=== PATIENT | female | born 1965 | race Caucasian/White ===

== ENCOUNTER 2016-10-23 21:36 | Emergency (ER) | payer OTHER ==
[2016-10-23 21:39] VITALS: BP 110/77; PULSE 98; TEMP 37; O2SAT 95; Ht 152.4 cm
[2016-10-23] MEDS ORDERED: HYDR-5688 PO (21:56)
--- NOTE | 2016-10-23 21:57 | EMERGENCY ROOM VISIT NOTE ---
History First contact with patient: 21:42 Chief Complaint: OTHER COMPLAINT Stated Complaint: MEDICATION REQUEST History of Present Illness The patient is a 50 year old female who presents to the Emergency Room stating that she has diverticulitis. The patient reports that she was seen at her primary care provider's office today for left lower quadrant abdominal pain. She was given prescriptions for clindamycin and ciprofloxacin and told not to take them until she had a CT scan of her abdomen. The patient had the CT scan done as an outpatient tonight and states that it did show acute diverticulitis. She reports that when she went to fill the prescriptions, all the pharmacies were closed. The patient rates her abdominal discomfort a 5/10. She is slightly nauseous. She does have Zofran to take at home but states she does not have any pain medication. She denies any fevers/chills or vomiting. Review of Systems A complete 10-point Review of Systems was discussed with the patient, with pertinent positives and negatives listed in the History of Present Illness. All remaining Review of Systems questions can be considered negative unless otherwise specified. Past Medical/Surgical History Medical Problems: (1) Diverticulitis Colon (W/O Ment Of Hemorrhage) Surgical Problems: (1) No significant past surgical history Family History Cancer Heart disease Hypertension Social History Smoking Status: Current Every Day Smoker Alcohol Use: none Marital Status: Housing Status: lives with significant other Occupation Status: employed Current/Historical Medications Scheduled Aspirin (Aspirin Ec), 81 MG PO DAILY Ciprofloxacin Hcl (Cipro), 500 MG PO Q12 Clindamycin Hcl (Cleocin), 300 MG PO QID Fluticasone Propionate (Flovent Hfa), 2 PUFFS INH BID Multivitamins/Minerals (Mvi With Minerals), 1 TAB PO DAILY Scheduled PRN Hydrocodone/Acetaminophen 5MG/325MG ([place] 5MG/325MG), 1-2 TABLET PO Q4H PRN for Pain Ondansetron Hcl (Zofran), 4 MG PO Q8 PRN for Nausea [Proair], 2 PUFF INH Q4 PRN for Wheezing Allergies Coded Allergies: BEE STING (Unverified Allergy, Unknown, SWELLING, 07/09/16) Prednisone (Unverified Allergy, Unknown, IRRITABLE, 07/09/16) Physical Exam Vital Signs Date Time Temp Pulse Resp B/P Pulse Ox O2 Delivery O2 Flow Rate FiO2 10/23/16 21:39 37.0 98 20 110/77 95 Room Air Physical Exam VITALS: Vitals are noted on the nurse's note and reviewed by myself. Vital signs stable. GENERAL: This is a 50-year-old female, in no acute distress, nondiaphoretic, well-developed well-nourished. HEART: Regular rate and rhythm without murmurs gallops or rubs. LUNGS: Clear to auscultation bilaterally without wheezes, rales or rhonchi. No retractions or accessory muscle use. ABDOMEN: Positive bowel sounds x 4. Moderate tenderness over the left lower quadrant. No guarding or rebound tenderness. NEURO: Patient was alert and oriented to person place and time. Medical Decision & Procedures Medications Administered Medications (Trade) Dose Ordered Sig/Shahida Route Start Time Stop Time Status Last Admin Dose Admin Ciprofloxacin (Cipro 500MG Home Pack) 1 homepack UD ONCE PO 10/23/16 22:00 10/23/16 22:01 DC 10/23/16 22:07 1 HOMEPACK Clindamycin HCl (Cleocin 150MG Home Pack) 1 homepack UD ONCE PO 10/23/16 22:00 10/23/16 22:01 DC 10/23/16 22:07 1 HOMEPACK Acetaminophen/ Hydrocodone Bitart ([place] 5/325mg Home Pack) 1 homepack UD ONCE PO 10/23/16 22:00 10/23/16 22:01 DC 10/23/16 22:07 1 HOMEPACK Medical Decision The patient was evaluated as above. She already had an outpatient CT scan which diagnosed diverticulitis. The patient is here because she is not able to yet fill her prescriptions for her antibiotics. She was given home packs of both clindamycin and ciprofloxacin, which were prescribed to her by her primary care provider. Additionally, the patient was given a home pack and short prescription for [place] to be used as needed for pain. She will return for any new/concerning symptoms or worsening of her abdominal pain. Otherwise, she will follow-up with her primary care provider as scheduled. She verbalized understanding of my assessment and treatment plan and was discharged home in good condition. Impression Primary Impression: Diverticulitis Departure Information Dispostion Home / Self-Care Condition GOOD Prescriptions Hydrocodone/Acetaminophen 5MG/325MG ([place] 5MG/325MG) Tab 1-2 TABLET PO Q4H Y for Pain, #10 TAB For Initial Treatment Prov: Cara Moraes .JEFFREY 10/23/16 Referrals Barron Stevens M.D. (PCP) Patient Instructions A Signature Page, My [facility] Additional Instructions Take the antibiotics as prescribed by your primary care provider. You have been prescribed [place] to be used for pain control. Take 1-2 tablets every 4-6 hours as needed for pain. This is a narcotic medication. You cannot drive or consume alcohol while on this medicine. This medicine should only be used for pain that cannot be controlled with [id number] pain medicines. Follow-up with your primary care provider as scheduled. Return to the emergency department as needed for any worsening symptoms.
[2016-10-23] MEDS ORDERED: CLINDAMYCIN 150MG HOME PACK PO ONE (22:00)
[2016-10-23] MEDS ORDERED: CIPROFLOXACIN 500MG HOME PACK PO ONE (22:00)
[2016-10-23] MEDS ORDERED: NORCO 5/325MG HOME PACK PO ONE (22:00)
[2016-10-23] MEDS ORDERED: PROAIR INH (22:15)
[2016-10-23] MEDS ORDERED: FLVHFA220 INH (22:15)
[2016-10-23] MEDS ORDERED: MULT-513 PO (22:15)
[2016-10-23] MEDS ORDERED: CLIN300C2 PO (22:15)
[2016-10-23] MEDS ORDERED: ASPI81TA28 PO (22:15)
[2016-10-23] MEDS ORDERED: CIPR-255 PO (22:15)
[2016-10-23] MEDS ORDERED: ONDA4TAB46 PO (22:15)
== END 2016-10-23 22:04 | disposition home or self-care (01) ==
LOC: C.EDB 21:37 → C.EDD 22:04
DX: K57.92 Diverticulitis of intestine, part unspecified, without perforation or abscess without bleeding (principal); Z76.0 Encounter for issue of repeat prescription; F17.200 Nicotine dependence, unspecified, uncomplicated; Z79.82 Long term (current) use of aspirin; Z88.8 Allergy status to other drugs, medicaments and biological substances

== ENCOUNTER → 2016-10-23 | Outpatient (CLI) | payer OTHER ==
[~2016-10-23] MED LIST: ALBU18002 INH; ASPI81TA28 PO; CIPR-255 PO; CLIN300C2 PO; FLVHFA220 INH; HYDR-5688 PO; MULT-513 PO; ONDA4TAB46 PO; OPTIRAY 320 IV PRN; PROAIR INH
--- NOTE | 2016-10-23 20:23 | DIAGNOSTIC IMAGING REPORT ---
CT OF THE ABDOMEN AND PELVIS WITH CONTRAST CLINICAL HISTORY: Left lower quadrant pain. Evaluate for acute diverticulitis. COMPARISON STUDY: CT of the abdomen and pelvis April 02, 2011. TECHNIQUE: Following IV administration of 119 mL of Optiray-320, axial images of the abdomen and pelvis were obtained from the lung bases to the proximal femurs. Images were reviewed in the axial, sagittal, and coronal planes. IV contrast was administered without complication. Oral contrast was administered. CT DOSE: 1061.36 mGycm FINDINGS: The liver, spleen, adrenal glands, kidneys and pancreas are normal. There is no biliary or pancreatic ductal dilatation. There is no peripancreatic or pericholecystic infiltration. No hydronephrosis is present. There is no evidence for a bowel obstruction. There is diverticulosis of the left colon. Note is made of moderate wall thickening of the distal descending colon with mild to moderate associated infiltration. There is no free air or abscess. Several nabothian cysts are again noted. These were shown on prior CT of April 02, 2011. Skeletal structures are unremarkable. There is no lymphadenopathy. The ovaries are not enlarged. IMPRESSION: Acute diverticulitis of the distal descending colon. No free air or abscess. Electronically signed by: Alexander Lara M.D. 10/23/2016 8:21 PM Dictated Date/Time: 10/23/2016 8:16 PM
== END | disposition home or self-care (01) ==
LOC: C.CTS 17:01
PROVIDERS: ATTEND Family Medicine
DX: K57.32 Diverticulitis of large intestine without perforation or abscess without bleeding (principal)

== ENCOUNTER 2017-04-15 21:20 | Emergency (ER) | payer OTHER ==
[~2017-04-15] VITALS: Ht 152.4 cm; Wt 79.1 kg
[~2017-04-15 21:20] MED LIST changes: -ALBU18002 INH; -OPTIRAY 320 IV PRN
[2017-04-15 21:27] VITALS: TEMP 36.7; Ht 152.4 cm; Wt 79.1 kg
[2017-04-15] MEDS ORDERED: HYDR-5688 PO ×2 (21:44→23:00)
[2017-04-15] MEDS ORDERED: ALBU18002 INH (21:44)
[2017-04-15] MEDS ORDERED: HYDROCODONE/ACETAMOPHEN 5/325MG TAB PO STA (22:32)
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
[2017-04-15] MEDS ORDERED: NORCO 5/325MG HOME PACK PO ONE (23:00)
[2017-04-15 23:17] VITALS: BP 123/85; PULSE 69; O2SAT 97
== END 2017-04-15 23:08 | disposition home or self-care (01) ==
LOC: C.EDB 21:21 → C.EDD 23:08
DX: T22.111A Burn of first degree of right forearm, initial encounter (principal); Z79.82 Long term (current) use of aspirin; X17.XXXA Contact with hot engines, machinery and tools, initial encounter

== ENCOUNTER → 2017-09-22 | Outpatient (CLI) | payer OTHER ==
[~2017-09-22] MED LIST changes: +ALBU18002 INH; -CIPR-255 PO; -CLIN300C2 PO; -PROAIR INH
== END | disposition home or self-care (01) ==
LOC: C.PAPS 11:41
PROVIDERS: ATTEND Obstetrics & Gynecology
DX: Z12.4 Encounter for screening for malignant neoplasm of cervix (principal)